=== PATIENT | male | born 1945 | race Caucasian/White ===

== ENCOUNTER 2016-07-18 14:08 | Inpatient (IN) | payer MEDICARE ==
[~2016-07-18] VITALS: Ht 193 cm; Wt 118.5 kg
[~2016-07-18 14:08] MED LIST: ASPI81TA82 PO; CLON.1 PO; LIPI10TA PO; MULTCAP14 PO
[2016-07-18 14:18] VITALS: BP 151/92; PULSE 91; RESP 16; TEMP 98.3; O2SAT 95
[2016-07-18] MEDS ORDERED: LIPI40TA PO (14:46)
[2016-07-18] MEDS ORDERED: AMLO5 PO (14:46)
[2016-07-18] MEDS ORDERED: ASPI1TAB69 PO (14:46)
[2016-07-18] MEDS ORDERED: PROPARACAINE HCL 0.5% OPHT SOLN 15 ML BTL RIGHT EYE ONE (15:00)
--- NOTE | 2016-07-18 15:37 | PD ---
HPI Chief Complaint: Eye Problems/Injury Time Seen by Provider: 14:49 Travel History International Travel<30 days: No Contact w/Intl Traveler<30days: No Traveled to known affect area: No History of Present Illness HPI The patient is a 71-year-old male who presents emergency department for right eye pain and decreased visual acuity. The patient recently traveled from [place], [place] to the local area over the last 5 days. The patient states initially he had a dull sensation of the right eye which was improved with [id number] Tylenol. However, over the last 2 days the patient has had increasing pain in the right eye, described as a throbbing and aching, behind the eye, is worse with extraocular movement. He also complains of mild decreased vision, possibly in the lower medial quadrant of the right eye. He denies any trauma to the right eye, but does note mild photophobia. The patient does wear glasses, but denies wearing contacts. The patient denies any history of uveitis, scleritis, episcleritis, optic neuritis, or glaucoma. The patient denies any history of multiple sclerosis. The patient denies any pain with the left eye. The patient denies any obvious redness to the right eye. The patient does not have a local primary physician. PFSH Past Medical History Hx Anticoagulant Therapy: Yes (asa 81 mg) Cardiovascular Problems: Yes (htn on meds) High Cholesterol: Yes Gastrointestinal Disorders: Yes (IBS) Hypertension: Yes Kidney Stones: Yes Respiratory: Yes (Hx of PE) Immunizations Current: Yes Influenza Vaccination: Yes Past Surgical History Genitourinary Surgery: Yes (URETERSCOPE TO REMOVE KIDNEY STONE 2011) Other Surgery: Yes (L. EAR SX BONY GROWTH REMOVAL, EYELID LIFT) Social History Alcohol Use: Yes (DAILY) Tobacco Use: No Substance Use: No Allergies-Medications (Allergen,Severity, Reaction): Coded Allergies: Vicodin (Verified Allergy, Severe, Dizziness, 07/18/16) TACHYCARDIA, AND SHORTNESS OF BREATH. Reported Meds & Prescriptions Reported Meds & Active Scripts Active Reported Lipitor (Atorvastatin Calcium) 40 Mg Tab 40 Mg PO HS Norvasc (Amlodipine Besylate) 5 Mg Tab 5 Mg PO DAILY Aspirin 81 Mg Tabdr 81 Mg PO DAILY Review of Systems Except as stated in HPI: all other systems reviewed are Neg Eyes: Positive: Blurred Vision, Photophobia, Pain, Visual changes, No: Foreign Body Sensation HENT: Positive: Headaches, No: Neck Pain Cardiovascular: No: Chest Pain or Discomfort Respiratory: No: Shortness of Breath Gastrointestinal: No: Nausea, Vomiting Musculoskeletal: No: Myalgias, Arthralgias Skin: No Rash Physical Exam Narrative GENERAL: Awake, alert, pleasant 71-year-old male who appears his stated age and is in no acute respiratory distress. SKIN: Warm and dry. HEAD: Atraumatic. Normocephalic. EYES: Pupils equal and round. The pupils are 4 mm bilateral and reactive. Vision in the left eye is 20/20, bilaterally is 20/20, and in the right eye is 20/25. Inversion and eversion of the lids reveals no erythema. One drop of proparacaine was applied to the right eye. Slit lamp examination was performed , minimal haze over the anterior chamber but no obvious cell flare. There was no pain in the right eye when the left eye had light applied. Extraocular muscles were intact, did increase the patient's discomfort per his report. He was able to see fingers at a distance of 2 feet without difficulty. There was no visible corneal abrasion, corneal ulcer, or dendritic lesions. Ryan-Pen was used to measure pressures in the right eye which measured 15 and 17. ENT: No nasal bleeding or discharge. Mucous membranes pink and moist. NECK: Trachea midline. No JVD. MUSCULOSKELETAL: No obvious deformities. No clubbing. No cyanosis. No edema. NEUROLOGICAL: Awake and alert. No obvious cranial nerve deficits. Motor grossly within normal limits. Normal speech. PSYCHIATRIC: Appropriate mood and affect; insight and judgment normal. Data Data Last Documented VS Vital Signs Date Time Temp Pulse Resp B/P Pulse Ox O2 Delivery O2 Flow Rate FiO2 07/18/16 14:18 98.3 91 16 151/92 95 Orders Proparacaine 0.5% Opth Soln (Alcaine 0.5 (07/18/16 15:00) Mri Brain W&W/O Contrast (07/18/16 ) Mri Orbits W&W/O Contrast (07/18/16 ) Basic Metabolic Panel (Bmp) (07/18/16 15:22) Westergren Sedimentation Rate (07/18/16 15:25) MDM Medical Decision Making Medical Screen Exam Complete: Yes Emergency Medical Condition: Yes Medical Record Reviewed: Yes Differential Diagnosis Differential diagnosis includes optic neuritis, uveitis, scleritis, episcleritis , endophthalamitis, corneal abrasion, corneal ulcer, iritis, temporal arteritis. Narrative Course The patient's slit lamp examination reveals a thin haze over the right anterior chamber, but no obvious cell flare. The patient has pain with extraocular movements, mild photophobia, and throbbing headache. The patient's pressures were normal, and the pupil is not cloudy or fixed in the mid range, I doubt glaucoma. The patient's symptoms may be secondary to uveitis versus optic neuritis. The patient's vision on the left was 20/20 and on the right was 20/ 25. BMP and sedimentation rate were sent to lab. MRI of the orbit and brain were ordered to evaluate for possible optic neuritis. The patient was signed out to the oncoming physician at 4 PM with MRI pending. If MRI is negative, I believe the patient can be placed on steroid drops and referred to ophthalmology to be evaluated on Wednesday. Condition: Stable Kenneth Major MD Jul 18, 2016 15:37
[2016-07-18 16:01] LABS: POTASSIUM 4.3 MEQ/L (3.5-5.1)
[2016-07-18 16:04] LABS: BICARBONATE 27.4 MEQ/L (21.0-32.0)
[2016-07-18] MEDS ORDERED: GADODIAMIDE PF 287 MG/ML 20 ML VIAL (for RAD MRI) IV ONE (16:58)
--- NOTE | 2016-07-18 17:42 | RADHPO ---
EXAM DATE/TIME: 07/18/2016 17:01 [facility] COMPARISON: No previous studies available for comparison. INDICATIONS : Optic neuritis. Right eye pain. CONTRAST: 20 cc Omniscan (gadodiamide) IV MEDICAL HISTORY : Hypertension. SURGICAL HISTORY : Eyelid lift, Inner ear calcification removal. ENCOUNTER: Initial ACUITY: 4-6 days PAIN SCORE: 4/10 LOCATION: Right Eye TECHNIQUE: Multiplanar, multisequence MRI examination was performed. FINDINGS: There is mild nerve and nerve sheath enhancement of the intraconal portions of the right optic nerve. Intracranial portions, including the chiasm, within normal limits. Optic tracts are within normal li mits. No mass demonstrated. Globes are within normal limits. No fluid collections are seen. Numerous subcentimeter foci of flair signal abnormality seen in the periventricular white matter of b oth cerebral hemispheres. No enhancing brain lesion. There is no restricted diffusion. No intracrania l hemorrhage, mass, mass effect or midline shift. CONCLUSION: Nonspecific, mild appearing optic neuritis on the right. No mass. Mild, chronic cerebral white matter changes, also nonspecific. No acute intracranial abnormality demonstrated. Vargas Weinstein MD on July 18, 2016 at 17:35 Board Certified Radiologist. This report was verified electronically.
[2016-07-18 18:15] VITALS: BP 111/62; PULSE 81; RESP 18; O2SAT 100
[2016-07-18] MEDS ORDERED: methylPREDNISolone SO SUCC INJ 1,000 MG in DEXTROSE 5% IN WATER 100ML INJ 100 ML IV ONE ×2 (18:15)
--- NOTE | 2016-07-18 18:15 | PD ---
Data Data Last Documented VS Vital Signs Date Time Temp Pulse Resp B/P Pulse Ox O2 Delivery O2 Flow Rate FiO2 07/18/16 14:18 98.3 91 16 151/92 95 Orders Proparacaine 0.5% Opth Soln (Alcaine 0.5 (07/18/16 15:00) Mri Orbits W&W/O Contrast (07/18/16 ) Basic Metabolic Panel (Bmp) (07/18/16 15:22) Westergren Sedimentation Rate (07/18/16 15:25) Gadodiamide Pf Inj (Omniscan Pf Inj) (07/18/16 16:58) Methylprednisolone So Succ Inj (Solumedr (07/18/16 18:15) Labs Laboratory Tests Test 07/18/16 15:44 Erythrocyte Sedimentation Rate 6 mm/hr Sodium Level 145 MEQ/L Potassium Level 4.3 MEQ/L Chloride Level 109 MEQ/L Carbon Dioxide Level 27.4 MEQ/L Anion Gap 9 MEQ/L Blood Urea Nitrogen 12 MG/DL Creatinine 1.00 MG/DL Estimat Glomerular Filtration 74 ML/MIN Rate Random Glucose 163 MG/DL Calcium Level 8.8 MG/DL MDM Supervised Visit with AYO: No Narrative Course The patient was evaluated by the previous provider and signed out to me at the beginning of my shift pending labs, MRI brain and orbits, and disposition. See his note for further details. Briefly this is a 71-year-old male who is here for evaluation of right retro- orbital pain and blurred vision. Pain started about 5 days ago her vision started yesterday. Previous provider performed a thorough eye exam and ruled out glaucoma with normal intraocular pressures bilaterally, no corneal abrasion , mild haziness and anterior chamber without cell or flare, normal visual bess. ESR is 6 essentially ruling out temporal arteritis. MRI brain and orbits show no mass, however there is mild optic neuritis on the right. Case was discussed with on-call neurologist Dr. John who recommends admission for administration of Solu-Medrol 1 g IV daily 3 days. He will see the patient in consultation. Patient was made aware of all findings and plan for admission. Diagnosis Primary Impression: Optic neuritis, right Admitting Information Admitting Physician Requests: Admit Condition: Stable Connor Barrios MD Jul 18, 2016 18:15
[2016-07-18 18:35] VITALS: BP 190/101; PULSE 82; RESP 18; O2SAT 95
[2016-07-18] MEDS ORDERED: ONDANSETRON HCL 4 MG/2 ML VIAL IVP PRN (18:45)
[2016-07-18] MEDS ORDERED: ACETAMINOPHEN 325 MG TAB PO PRN (18:45)
[2016-07-18] MEDS ORDERED: NALOXONE HCL 0.4 MG/ML AMP IV PRN (18:45)
[2016-07-18] MEDS ORDERED: MAGNESIUM HYDROXIDE SUSP 30 ML CUP PO PRN (18:45)
[2016-07-18] MEDS ORDERED: SODIUM CHLORIDE 0.9% FLUSH 5 ML FLUSH FLUSH PRN (18:45)
--- NOTE | 2016-07-18 19:03 | HHI.HP ---
[facility]Staff Admission Diagnosis optic neuritis Diagnoses: (1) Optic neuritis, right (2) Hyperlipidemia (3) Hypertension Chief Complaint: Right eye pain, vision loss Travel History International Travel<30 Days: No Contact w/Intl Traveler <30 Da: No Traveled to Known Affected Are: No History of Present Illness The patient is a 71-year-old male who presented to emergency department with a four-day history of right eye discomfort and decreased visual acuity. He states that he drove from [place] starting on Wednesday. By the end of the day Wednesday, he was having some pain in his right eye as well as headache. He took some Tylenol, which helped the pain. He has had increasing pain over the last 2-3 days and yesterday developed decreased vision in the right eye. The vision changes have remained the same today, they have not worsened or improved. No headache currently. No chest pain or dyspnea. Patient denies any other history of neurologic diagnoses, but did have dizziness for 1-2 days about 2 weeks ago. Review of Systems Constitutional: DENIES: Fever, Chills, Night Sweats Eyes: COMPLAINS OF: Blurred vision, Eye pain, Vision loss, Photosensitivity Ears, nose, mouth, throat: DENIES: Hearing loss Respiratory: DENIES: Cough, Wheezing, Sputum production, Shortness of breath Cardiovascular: DENIES: Chest pain, Palpitations, Dyspnea on Exertion, Lower Extremity Edema Gastrointestinal: DENIES: Abdominal pain, Constipation, Diarrhea, Nausea, Vomiting Genitourinary: DENIES: Urinary frequency, Urinary incontinence, Urgency, Hematuria, Dysuria, Nocturia Musculoskeletal: DENIES: Joint pain, Muscle aches Integumentary: DENIES: Pruritus, Rash Hematologic/lymphatic: DENIES: Bruising Neurologic: DENIES: Headache Past Family Social History Past Medical History Hypertension Hyperlipidemia Irritable bowel syndrome History of kidney stone History of PE following a long drive Past Surgical History Ureteroscoped to remove kidney stone 2011 Left ear surgery Left knee surgery Left foot surgery Reported Medications Lipitor (Atorvastatin Calcium) 40 Mg Tab 40 Mg PO HS Norvasc (Amlodipine Besylate) 5 Mg Tab 5 Mg PO DAILY Aspirin 81 Mg Tabdr 81 Mg PO DAILY Allergies: Coded Allergies: Vicodin (Verified Allergy, Severe, Dizziness, 07/18/16) TACHYCARDIA, AND SHORTNESS OF BREATH. Family History Heart disease Social History Reports daily alcohol use, 1-2 drinks per day. Denies tobacco or illicit drug use. Physical Exam Vital Signs Vital Signs Date Time Temp Pulse Resp B/P Pulse Ox O2 Delivery O2 Flow Rate FiO2 07/18/16 18:35 82 18 190/101 95 Room Air 07/18/16 14:18 98.3 91 16 151/92 95 Physical Exam GENERAL: Well-nourished, well-developed male in no acute distress. HEENT: Normocephalic, atraumatic. Pupils equal, round and reactive. Extraocular movements intact. No scleral icterus. Oropharynx is clear. Mucous membranes are moist. CARDIOVASCULAR: Regular rate and rhythm without murmurs, gallops, or rubs. RESPIRATORY: Clear to auscultation. No wheezes, rales, or rhonchi. Breathing is non-labored. GASTROINTESTINAL: Abdomen soft, non-tender, nondistended. EXTREMITIES: No lower extremity edema. No calf tenderness. PSYCH: Alert and oriented x 3. Laboratory Laboratory Tests Test 07/18/16 15:44 Erythrocyte Sedimentation Rate 6 Sodium Level 145 Potassium Level 4.3 Chloride Level 109 Carbon Dioxide Level 27.4 Anion Gap 9 Blood Urea Nitrogen 12 Creatinine 1.00 Estimat Glomerular Filtration 74 Rate Random Glucose 163 Calcium Level 8.8 Result Diagram: 07/18/16 1544 Imaging Last Impressions Orbit MRI 07/18/16 0000 Signed Impressions: Service Date/Time: Monday, July 18, 2016 17:01 - CONCLUSION: Nonspecific, mild appearing optic neuritis on the right. No mass. Mild, chronic cerebral white matter changes, also nonspecific. No acute intracranial abnormality demonstrated. Vargas Weinstein MD Assessment and Plan Assessment and Plan 1. Optic neuritis: Consult neurology. The ER physician spoke with the on-call neurologist who recommended high-dose Solu-Medrol daily for 3 days. 2. Hypertension: Continue Norvasc. Vasotec as needed. 3. Hyperlipidemia: Continue statin. 4. DVT prophylaxis: KENN Schaeffer. Danial Barreto MD Jul 18, 2016 19:03
[2016-07-18] MEDS ORDERED: ENALAPRILAT 1.25 MG/ML VIAL IV PUSH PRN (19:15)
[2016-07-18 19:16] VITALS: BP 191/83; PULSE 89; RESP 18; O2SAT 95
[2016-07-18 20:12] VITALS: BP 168/81; PULSE 85; RESP 17; O2SAT 95
[2016-07-18] MEDS: ATORVASTATIN 40 MG TAB PO SCH (20:31)
[2016-07-18 23:10] VITALS: BP 158/68; PULSE 78; RESP 18; O2SAT 94
[2016-07-19] VITALS (10 sets, daily range): BP systolic 124–174; BP diastolic 58–93; PULSE 82–107; RESP 17–18; TEMP 95.9–97.6; O2SAT 92–97
[2016-07-19] MEDS: SODIUM CHLORIDE 0.9% FLUSH 5 ML FLUSH FLUSH SCH ×3 (06:07→20:46)
[2016-07-19 07:03] LABS: AUTOMATED NEUTROPHIL # 11.9 TH/MM3 (1.8-7.7); BASOPHIL # 0.1 TH/MM3 (0-0.2); BASOPHIL % 0.7 % (0.0-2.0); HEMATOCRIT 48.2 % (39.0-51.0); LYMPHOCYTE # 0.6 TH/MM3 (1.0-4.8); MEAN CELL VOLUME 88.9 FL (80.0-100.0); MEAN CORPUSCULAR HEMOGLOBIN 29.6 PG (27.0-34.0); MEAN CORPUSCULAR HGB CONC 33.3 % (32.0-36.0); MONO % 0.1 % (0.0-8.0); NEUT % 94.2 % (16.0-70.0); PLATELET COUNT 184 TH/MM3 (150-450); RED BLOOD COUNT 5.42 MIL/MM3 (4.50-5.90); RED CELL DISTRIBUTION WIDTH 12.5 % (11.6-17.2); WHITE BLOOD COUNT 12.6 TH/MM3 (4.0-11.0)
[2016-07-19 07:06] LABS: HEMO FLAGS DIFF FINAL
[2016-07-19 07:24] LABS: BICARBONATE 23.7 MEQ/L (21.0-32.0)
[2016-07-19] MEDS: ASPIRIN EC 81 MG TABEC PO SCH (08:54)
[2016-07-19] MEDS: amLODIPine BESYLATE 5 MG TAB PO SCH (08:54)
--- NOTE | 2016-07-19 09:35 | HHI.PR ---
Subjective Remarks Follow-up optic neuritis. Patient states that he feels better today. Pain in the right eye has essentially resolved. His vision is more clear this morning. No chest pain or dyspnea. Has had fluctuating heart rate overnight after receiving the steroids. Objective Vitals Vital Signs Date Time Temp Pulse Resp B/P Pulse Ox O2 Delivery O2 Flow Rate FiO2 07/19/16 06:35 90 18 153/80 97 Room Air 07/19/16 05:40 94 18 172/91 Room Air 07/19/16 03:00 89 17 164/86 95 Room Air 07/18/16 23:10 78 18 158/68 94 Room Air 07/18/16 21:33 18 07/18/16 20:12 85 17 168/81 95 Room Air 07/18/16 19:16 89 18 191/83 95 Room Air 07/18/16 18:35 82 18 190/101 95 Room Air 07/18/16 14:18 98.3 91 16 151/92 95 Result Diagram: 07/19/16 0620 07/19/16 0620 Imaging Last Impressions Orbit MRI 07/18/16 0000 Signed Impressions: Service Date/Time: Monday, July 18, 2016 17:01 - CONCLUSION: Nonspecific, mild appearing optic neuritis on the right. No mass. Mild, chronic cerebral white matter changes, also nonspecific. No acute intracranial abnormality demonstrated. Vargas Weinstein MD Objective Remarks General: No acute distress. Heart: Regular rate and rhythm. No murmur. Lungs: Clear to auscultation bilaterally. No wheezes, rales, or rhonchi. Breathing is nonlabored. Abdomen: Soft, nontender, nondistended. Extremities: No lower extremity edema. Psych: Alert and oriented. Urinary Catheter: No Vascular Central Line Catheter: No A/P Problem List: (1) Optic neuritis, right ICD Code: H46.9 Status: Acute (2) Hyperlipidemia ICD Code: E78.5 Status: Chronic (3) Hypertension ICD Code: I10 Status: Chronic Assessment and Plan 1. Optic neuritis: Vision and eye pain are improving. Consult neurology. The ER physician spoke with the on-call neurologist who recommended high-dose Solu- Medrol daily for 3 days. 2. Hypertension: Continue Norvasc. Vasotec as needed. 3. Hyperlipidemia: Continue statin. 4. DVT prophylaxis: SCDs, KENN hose. Discharge Planning When cleared by neurology. Danial Barreto MD Jul 19, 2016 09:35
[2016-07-19] MEDS ORDERED: ACETAMINOPHEN 325 MG TAB PO ONE (12:00)
[2016-07-19] MEDS ORDERED: ACETAMINOPHEN 325 MG TAB PO PRN (12:30)
--- NOTE | 2016-07-19 13:12 | EKG ---
Date Performed: 07/19/2016 Time Performed: 05:20:10 PTAGE: 71 years EKG: Sinus arrhythmia Normal ECG NO PREVIOUS TRACING DOCTOR: Ida Rivers Interpretating Date/Time 07/19/2016 13:09:34
[2016-07-19] MEDS ORDERED: methylPREDNISolone SO SUCC INJ 1,000 MG in DEXTROSE 5% IN WATER 100ML INJ 100 ML IV ONE ×2 (18:00)
--- NOTE | 2016-07-19 20:48 | MB ---
cc: ANGELY YODER MD DATE OF CONSULTATION 07/19/2016 REASON FOR CONSULTATION Painful loss of vision of the right eye. HISTORY OF PRESENT ILLNESS A 71-year-old male presents to the emergency room with a one week history of right eye pain and discomfort with diminished vision. He states he was driving from [place] on Wednesday and he was having pain in his right eye, especially on movement and mild headache. Then he had noticed two days later that he developed a diminished vision in the right eye and vision became "pixilated" but he denies any change in the color vision. No double vision. He has no speech disturbances. No weakness. Denies any prior similar episodes. REVIEW OF SYSTEMS A 12-point review of systems is negative except for what is stated in the HPI. PAST MEDICAL HISTORY 1. Hypertension. 2. Hyperlipidemia. 3. Irritable bowel syndrome. 4. History of kidney stones. 5. History of PE following a long drive. 6. He was thoroughly investigated for suspicion Lyme disease but it was found to be normal. PAST SURGICAL HISTORY 1. Ureteroscopy for kidney stones 2011. 2. Left ear surgery. 3. Left knee surgery. 4. Left foot surgery. MEDICATIONS 1. Lipitor. 2. Norvasc. 3. Aspirin 81. left knee surgery next left foot surgery. MEDICATIONS 1. Lipitor. 2. Norvasc. 3. Aspirin 81. ALLERGIES VICODIN. FAMILY HISTORY Significant for heart disease. SOCIAL HISTORY Daily alcohol use one to two drinks per day. Denies tobacco or recreational drug abuse. PHYSICAL EXAMINATION GENERAL: Well-nourished, good historian, not in acute distress. HEENT: Atraumatic, normocephalic. Intact hearing. Complains of blurry vision on the right eye that has been improving since yesterday after he received first dose of Solu-Medrol. CARDIOVASCULAR: Regular rate and rhythm without murmurs. LUNGS: Clear to auscultation. No wheezes. EXTREMITIES: No lower extremity edema. No cyanosis. Moves all extremities equally. PSYCHIATRIC: Good mood and behavior. Normal judgment. LABORATORY DATA Sedimentation rate 6.0. Sodium level 145, potassium level 4.3, chloride 109, anion gap 9, BUN 12, creatinine 1.0, random glucose 163, calcium 8.2. IMAGING Diagnostic imaging: - MRI orbit with and without contrast revealed nonspecific mild appearing optic neuritis on the right side. No masses. Mild chronic cerebral white matter changes, also nonspecific. No acute intracranial abnormality detected. No restricted diffusion. No hemorrhage. No midline shift. DIAGNOSTIC IMPRESSION - Right nonspecific optic neuritis. Possible etiologies include demyelination, vasculitis / vasculopathy. Other less likely pathologies include giant cell arteritis, vitamin B12 / vitamin deficiency, neuro sarcoid, Lyme disease. PLAN 1. Neuro checks q.4h. 2. Methylprednisolone that I recommended to be started after discussing with the emergency room physician to be started from yesterday, patient received one dose to continue for three doses and three consecutive days. 3. Continue blood pressure medication. 4. Continue statin. 5. Telemetry. 6. Cardiac echo. 7. Carotid ultrasound. 8. Cervical spine MRI. 9. Lumbar puncture, chemistry, cytology, ALANNA, lyme Ab, IgG index, NMO, oligoclonal bands, protein, . 10. DVT prophylaxis. Thank you for the opportunity to participate in care of your patient. MD LEROY Meza/MAGED /4:40 PM /8:30 PM SHAHRIAR
[2016-07-19] MEDS: ATORVASTATIN 40 MG TAB PO SCH (22:17)
[2016-07-20] VITALS: BP 124/65; PULSE 72; RESP 18; TEMP 95.7; O2SAT 92
[2016-07-20 04:00] VITALS: BP 140/69; PULSE 71; RESP 18; TEMP 95.5; O2SAT 92
[2016-07-20] MEDS: ASPIRIN EC 81 MG TABEC PO SCH (09:00)
[2016-07-20] MEDS: amLODIPine BESYLATE 5 MG TAB PO SCH (09:47)
[2016-07-20] MEDS: SODIUM CHLORIDE 0.9% FLUSH 5 ML FLUSH FLUSH SCH ×2 (09:47→21:48)
[2016-07-20] MEDS ORDERED: PNEUMOCOCCAL POLYVALENT INJ 25 MCG/0.5 ML SYR IM ONE (10:00)
[2016-07-20 11:13] VITALS: BP 150/74; PULSE 95; RESP 18; TEMP 96; O2SAT 93
[2016-07-20] MEDS ORDERED: GADODIAMIDE PF 287 MG/ML 20 ML VIAL (for RAD MRI) IV ONE (11:14)
[2016-07-20 12:00] VITALS: BP 142/72; PULSE 67; RESP 18; TEMP 96; O2SAT 93
--- NOTE | 2016-07-20 12:04 | RADRPT ---
EXAM DATE/TIME: 07/20/2016 10:50 [facility] COMPARISON: No previous studies available for comparison. INDICATIONS : Diminished vision in right eye. CONTRAST: 20 cc Omniscan (gadodiamide) IV MEDICAL HISTORY : Hypertension. SURGICAL HISTORY : knee, eardrum, eyelid ENCOUNTER: Subsequent ACUITY: 3 day PAIN SCORE: 0/10 LOCATION: neck TECHNIQUE: Multiplanar, multisequence MRI examination of the cervical spine was performed. FINDINGS: Normal alignment. Diffuse disc desiccation and prominent anterior osteophyte formation at C5 and C6. Spinal cord is normal. C2-C3: The thecal sac has a normal configuration. There is no evidence of disc herniation or spinal canal stenosis. The neural foramina are patent bilaterally. C3-C4: Posterior disc osteophyte complex eccentric to the right with moderate right foraminal stenosis. C4-C5: The thecal sac has a normal configuration. There is no evidence of disc herniation or spinal canal s tenosis. The neural foramina are patent bilaterally. C5-C6: Small broad-based central disc protrusion abutting the cord. No canal or foraminal narrowing. C6-C7: Diffuse disc osteophyte complex greater centrally abuts the cord with facet and uncovertebral hypertr ophy and mild bilateral foraminal narrowing suspected. C7-T1: The thecal sac has a normal configuration. There is no evidence of disc herniation or spinal canal s tenosis. The neural foramina are patent bilaterally. CONCLUSION: Degenerative changes are noted as described above. Brandon Grissom MD on July 20, 2016 at 12:01 Board Certified Radiologist. This report was verified electronically.
--- NOTE | 2016-07-20 12:59 | HHI.PR ---
Subjective Remarks Patient seen and evaluated today in follow-up for optic neuritis. Reports improved vision with steroids. No new complaints. Headache is better. Objective Vitals Vital Signs Date Time Temp Pulse Resp B/P Pulse Ox O2 Delivery O2 Flow Rate FiO2 07/20/16 11:13 96.0 95 18 150/74 93 07/20/16 04:00 95.5 71 18 140/69 92 07/20/16 00:00 95.7 72 18 124/65 92 07/19/16 20:00 95.9 82 18 152/76 94 07/19/16 16:00 96.3 102 18 124/58 92 I/O 07/19/16 07/19/16 07/19/16 07/20/16 07/20/16 07/20/16 07:00 15:00 23:00 07:00 15:00 23:00 Intake Total 600 ml 240 ml Balance 600 ml 240 ml Intake Oral 600 ml 240 ml # Voids 2 2 # Bowel Movements 0 0 Result Diagram: 07/19/16 0620 07/19/16 0620 Imaging Last Impressions Orbit MRI 07/18/16 0000 Signed Impressions: Service Date/Time: Monday, July 18, 2016 17:01 - CONCLUSION: Nonspecific, mild appearing optic neuritis on the right. No mass. Mild, chronic cerebral white matter changes, also nonspecific. No acute intracranial abnormality demonstrated. Vargas Weinstein MD Objective Remarks GENERAL: This is a well-nourished, well-developed patient, in no apparent distress. CARDIOVASCULAR: Regular rate and rhythm without murmurs, gallops, or rubs. RESPIRATORY: Clear to auscultation. Breath sounds equal bilaterally. No wheezes , rales, or rhonchi. GASTROINTESTINAL: Abdomen soft, non-tender, nondistended. Normal active bowel sounds MUSCULOSKELETAL: Extremities without clubbing, cyanosis, or edema. NEURO: Alert & Oriented x4 to person, place, time, situation. Moves all ext x4 A/P Problem List: (1) Optic neuritis, right ICD Code: H46.9 Status: Acute Plan: Continue steroids, workup in progress Echo, carotid ultrasound pending Continue telemetry (2) Hypertension ICD Code: I10 Status: Chronic Plan: Controlled on home medications Audra Gilbert MD Jul 20, 2016 12:59
--- NOTE | 2016-07-20 13:48 | RADRPT ---
EXAM DATE/TIME: 07/20/2016 09:11 [facility] COMPARISON: No previous studies available for comparison. INDICATIONS : Optic neuritis. MEDICAL HISTORY : Hypercholesterolemia. Hypertension. Irritable bowel syndrome. Vision problem. Tinitis left ear. Antic oagulant therapy, Aspirin. Pulmonary embolism. Kidney stones. SURGICAL HISTORY : Ureteroscope. Left knee and foot surgery. Left ear surgery. Eyelid lift. ENCOUNTER: Initial ACUITY: 2 days PAIN SCORE: 0/10 LOCATION: Bilateral neck PEAK SYSTOLIC VELOCITIES (cm/sec): ICA/CCA RATIO: Right: 0.7 Left: 1.1 ICA: Right: 91 Left: 126 CCA: Right: 132 Left: 126 ECA: Right: 151 Left: 141 VERTEBRAL: Right: 47 antegrade Left: 45 antegrade Elevated flow velocities and ICA/CCA ratios have been found to correlate with increased degrees of vessel stenosis, calculated as percentage of diameter relative to a normal segment of distal ICA/CCA FINDINGS: RIGHT CAROTID: No significant stenosis is visualized. The waveforms are within normal limits. LEFT CAROTID: No significant stenosis is visualized. The waveforms are within normal limits. VERTEBRAL ARTERIES: Antegrade flow is seen in both vertebral arteries. MISCELLANEOUS: None. CONCLUSION: 1. No evidence for hemodynamically significant stenosis of either carotid artery. Brandon Grissom MD on July 20, 2016 at 13:46 Board Certified Radiologist. This report was verified electronically.
[2016-07-20 16:00] VITALS: BP 161/68; PULSE 68; RESP 18; TEMP 96.8; O2SAT 94
[2016-07-20 20:00] VITALS: BP 157/76; PULSE 58; RESP 16; TEMP 96.3; O2SAT 94
[2016-07-20] MEDS ORDERED: methylPREDNISolone SO SUCC INJ 1,000 MG in DEXTROSE 5% IN WATER 100ML INJ 100 ML IV ONE ×2 (20:00)
--- NOTE | 2016-07-20 21:24 | HHI.PR ---
Review/Management Diagnosis IMAGING Diagnostic imaging: - MRI orbit with and without contrast revealed nonspecific mild appearing optic neuritis on the right side. No masses. Mild chronic cerebral white matter changes, also nonspecific. No acute intracranial abnormality detected. No restricted diffusion. No hemorrhage. No midline shift. DIAGNOSTIC IMPRESSION - Right optic neuritis. Possible etiologies include demyelination, vasculitis / vasculopathy. Other less likely pathologies include giant cell arteritis, vitamin B12 / vitamin deficiency, neuro sarcoid, Lyme disease. PLAN 1. Neuro checks q.4h. 2. Methylprednisolone third and last dose today 3. Continue blood pressure medication. 4. Continue statin. 5. Telemetry. 6. Cardiac echo. 7. Carotid ultrasound unremarkable 8. Cervical spine MRI with no evidence of enhancing lesions 9. Lumbar puncture, chemistry, cytology, ALANNA, lyme Ab, IgG index, NMO, oligoclonal bands, protein, . 10. DVT prophylaxis. Diagnosis/Plan: Subjective Subjective Comments No acute events reported Complains of transient dizziness upon awakening from sleep, last a few seconds with no double vision or slurred speech. No painful eye movements CUS with no hemodynamically significant stenosis C spine MRI w & w/o contrast with no enhancing lesions Active Medications Current Medications Medications (Trade) Dose Ordered Sig/Gary Route Start Time Stop Time Status Last Admin (NS Flush) 2 ml UNSCH PRN FLUSH 07/18/16 18:45 (NS Flush) 2 ml BID FLUSH 07/18/16 21:00 07/20/16 09:47 (Tylenol) 650 mg Q4H PRN PO 07/18/16 18:45 07/18/16 20:33 (Zofran Inj) 4 mg Q6H PRN IVP 07/18/16 18:45 (Milk Of Magnesia Liq) 30 ml Q12H PRN PO 07/18/16 18:45 (Narcan Inj) 0.4 mg UNSCH PRN IV 07/18/16 18:45 (Vasotec Inj) 1.25 mg Q6H PRN IV PUSH 07/18/16 19:15 07/19/16 06:07 (Norvasc) 5 mg DAILY PO 07/19/16 09:00 07/20/16 09:47 (Ecotrin Ec) 81 mg DAILY PO 07/19/16 09:00 07/19/16 08:54 (Lipitor) 40 mg HS PO 07/18/16 21:00 07/19/16 22:17 (Tylenol) 650 mg Q6H PRN PO 07/19/16 12:30 Allergies Allergies Coded Allergies Vicodin (Verified Allergy, Severe, Dizziness, 07/18/16) Exam I&O / VS 07/19/16 07/19/16 07/20/16 15:00 23:00 07:00 Intake Total 600 ml 240 ml Balance 600 ml 240 ml Intake Oral 600 ml 240 ml # Voids 2 2 # Bowel Movements 0 0 Vital Signs Date Time Temp Pulse Resp B/P Pulse Ox O2 Delivery O2 Flow Rate FiO2 07/20/16 21:02 Room Air 07/20/16 16:00 96.8 68 18 161/68 94 07/20/16 12:00 96.0 67 18 142/72 93 07/20/16 11:13 96.0 95 18 150/74 93 07/20/16 04:00 95.5 71 18 140/69 92 07/20/16 00:00 95.7 72 18 124/65 92 Exam Comments GENERAL: Well-nourished, good historian, not in acute distress. HEENT: Atraumatic, normocephalic. Intact hearing. Complains of blurry vision on the right eye that has been improving since yesterday after he received first dose of Solu-Medrol. CARDIOVASCULAR: Regular rate and rhythm without murmurs. LUNGS: Clear to auscultation. No wheezes. EXTREMITIES: No lower extremity edema. No cyanosis. Moves all extremities equally. NEUROLOGIC: Awake, alert, oriented to time, person and place, intact memory, speech and speech content, right eye RAPD, no nystagmus, no diplopia, the rest of the cranial nerves are grossly intact.motor system 5/5 b/l UE&LE , normal tone , no abnormal movements.Cerebellar and sensory systems functions are normal. Reflexes 2+ throughout, plantars are b/l downgoing. Intact stance and gait, negative Rhomberg's sign, no ataxia. PSYCHIATRIC: Good mood and behavior. Normal judgment. Objective Radiology Results Last 72 hours Impressions Orbit MRI 07/18/16 0000 Signed Impressions: Service Date/Time: Monday, July 18, 2016 17:01 - CONCLUSION: Nonspecific, mild appearing optic neuritis on the right. No mass. Mild, chronic cerebral white matter changes, also nonspecific. No acute intracranial abnormality demonstrated. Vargas Weinstein MD Ossi,Ryne Godwin MD Jul 20, 2016 21:24
[2016-07-20] MEDS: ATORVASTATIN 40 MG TAB PO SCH (21:47)
[2016-07-21 01:12] VITALS: BP 164/89; PULSE 66; RESP 16; TEMP 96; O2SAT 92
[2016-07-21 08:00] VITALS: BP 131/64; PULSE 67; RESP 18; TEMP 95.9; O2SAT 92
[2016-07-21] MEDS: ASPIRIN EC 81 MG TABEC PO SCH (09:00)
[2016-07-21] MEDS: SODIUM CHLORIDE 0.9% FLUSH 5 ML FLUSH FLUSH SCH ×2 (09:18→21:45)
[2016-07-21] MEDS: amLODIPine BESYLATE 5 MG TAB PO SCH (09:18)
[2016-07-21 11:16] LABS: PROTHROMBIN TIME - PATIENT 11.2 SEC (9.8-11.6)
[2016-07-21 12:00] VITALS: BP 150/84; PULSE 70; RESP 17; TEMP 95.5; O2SAT 93
--- NOTE | 2016-07-21 13:43 | HHI.PR ---
Subjective Remarks Follow-up for optic neuritis. The patient states that he was having visual floaters yesterday, and that has improved overnight. He states the eye pain he was having when he came in was resolved after starting on the steroids. He does feel a little lightheaded on steroids. Has been able to ambulate with no problems. He denies any cough, chest pain, shortness of breath. He states in the ED he had some heart palpitations, none since. Had a normal BM. Going for LP. Objective Vitals Vital Signs Date Time Temp Pulse Resp B/P Pulse Ox O2 Delivery O2 Flow Rate FiO2 07/21/16 08:00 95.9 67 18 131/64 92 07/21/16 01:12 96.0 66 16 164/89 92 07/20/16 21:02 Room Air 07/20/16 20:00 96.3 58 16 157/76 94 07/20/16 16:00 96.8 68 18 161/68 94 I/O 07/20/16 07/20/16 07/20/16 07/21/16 07/21/16 07/21/16 06:59 14:59 22:59 06:59 14:59 22:59 Intake Total 240 ml 480 ml 480 ml 240 ml Balance 240 ml 480 ml 480 ml 240 ml Intake Oral 240 ml 480 ml 480 ml 240 ml # Voids 2 3 2 1 # Bowel Movements 0 0 1 0 Result Diagram: 07/19/16 0620 07/19/16 0620 Imaging Last Impressions Cervical Spine MRI 07/20/16 0000 Signed Impressions: Service Date/Time: Wednesday, July 20, 2016 10:50 - CONCLUSION: Degenerative changes are noted as described above. Brandon Grissom MD Carotid Artery Ultrasound 07/20/16 0000 Signed Impressions: Service Date/Time: Wednesday, July 20, 2016 09:11 - CONCLUSION: 1. No evidence for hemodynamically significant stenosis of either carotid artery. Brandon Grissom MD Orbit MRI 07/18/16 0000 Signed Impressions: Service Date/Time: Monday, July 18, 2016 17:01 - CONCLUSION: Nonspecific, mild appearing optic neuritis on the right. No mass. Mild, chronic cerebral white matter changes, also nonspecific. No acute intracranial abnormality demonstrated. Vargas Weinstein MD Objective Remarks GENERAL: Well-developed well-nourished. In no acute distress. Ambulating in the room. SKIN: Warm and dry. No lesions noted. HEENT: Normocephalic. Pupils equal and round. Mucous membranes pink and moist. CARDIOVASCULAR: Regular rate and rhythm. No murmur appreciated. RESPIRATORY: No accessory muscle use. Clear to auscultation. Breath sounds equal bilaterally. GASTROINTESTINAL: Abdomen soft, non-tender, nondistended. Bowel sounds x4. MUSCULOSKELETAL: No obvious deformities. No clubbing or cyanosis. No edema. NEUROLOGICAL: Awake and alert. No focal neurological deficits. Moves upper and lower extremities spontaneously. Normal speech. PSYCHIATRIC: Appropriate mood and affect; insight and judgment normal. A/P Problem List: (1) Optic neuritis, right ICD Code: H46.9 Status: Acute (2) Hypertension ICD Code: I10 Status: Chronic Assessment and Plan 71-year-old male with past medical history of HTN, HLD, IBS, who presented with a four-day history of right eye discomfort and decreased visual acuity Optic neuritis: Seen on orbital MRI. Vision and eye pain continued to improve. Consulted neurology, appreciate input. S/P steroids. Awaiting echocardiogram. LP today, follow-up results. Hypertension: Chronic, stable. Continue Norvasc. Vasotec as needed. Hyperlipidemia: Chronic, stable. Continue statin. DVT prophylaxis: SCDs, KENN casillas. Written by Aakash Silverio, acting as scribe for Dr. Nieto on 07/21/16 at 13:42. Discharge Planning Disposition pending clinical course. Attending Statement The documentation accurately reflects the work performed [id number] by wa, Dr. Nieto on 07/21/16 at 13:42. Aaksah Silverio Jul 21, 2016 13:43 Chevy Nieto MD Jul 22, 2016 02:36
--- NOTE | 2016-07-21 14:14 | PD.RAD ---
Post Procedure Progress Note Pre Procedure Diagnosis: (1) Optic neuritis, right Post Procedure Diagnosis: (1) Optic neuritis, right Procedure Date: Jul 21, 2016 Supervising Radiologist: Karl Meneses Anesthesia: Local Plan of Activity Patient to Unit: Nursing Unit Patient Condition: Good Additional Comments: LP completed without difficulty. CSF was clear. Opening pressure 17 Samples sent to path. See PACS Report for procedural detail/treatment Karl Meneses MD Jul 21, 2016 14:14
--- NOTE | 2016-07-21 14:38 | RADRPT ---
EXAM DATE/TIME: 07/21/2016 13:30 [facility] COMPARISON: No previous studies available for comparison. INDICATIONS : Patient with right optic neuritis in need of lumbar puncture. MEDICAL HISTORY : HTN, HLD, IBS, Kidney stones, PE SURGICAL HISTORY : Ureteroscoped to remove right kidney stone, Left knee and foot surgery, Left ear surgery ENCOUNTER: Initial ACUITY: 1 week PAIN SCORE: 0/10 LUMBAR PUNCTURE TIME: 1344 hours FLUORO TIME: 2.1 minutes ACCESS LEVEL: L3-4 OPENING PRESSURE: 17cm of water CLOSING PRESSURE: Not requested. FLUID: 22 cc of clear CSF was collected and sent to the laboratory for analysis. PROCEDURE : 1. Fluoroscopic guided lumbar puncture. 2. Recording of opening pressure. The risks, benefits and alternatives to the procedure were explained and verbal and written consent w as obtained. The site was prepped in sterile fashion. Full sterile technique was used, including ca p, mask, sterile gloves and gown and a large sterile sheet. Hand hygiene and 2% chlorhexidine and/or betadine/alcohol prep was utilized per protocol for cutaneous antisepsis. The skin and subcutaneous tissues were infiltrated with local anesthetic solution. With fluoroscopic guidance the lumbar thecal sac was punctured at the above level described above and the opening pressure was recorded. The above described fluid was removed without difficulty. The patient tolerated the procedure well and there were no complications. CONCLUSION: Uncomplicated fluoroscopically guided lumbar puncture with pressures as above. Karl Meneses MD on July 21, 2016 at 14:36 Board Certified Radiologist. This report was verified electronically.
[2016-07-21 15:06] LABS: GROSS BLOOD TUBE #1 TRACE (0); GROSS BLOOD TUBE #2 0 (0); GROSS BLOOD TUBE #3 0 (0); SUPERNATE COLOR TUBE #1 CLEAR (CLEAR); SUPERNATE COLOR TUBE #2 CLEAR (CLEAR); SUPERNATE COLOR TUBE #3 CLEAR (CLEAR); VOLUME TUBE # 1 4.5 ML; VOLUME TUBE # 2 4.8 ML; VOLUME TUBE # 3 4.8 ML
[2016-07-21 15:07] LABS: CSF LYMPHOCYTES 100 %; CSF NEUTROPHILS 0 %; GROSS BLOOD TUBE #4 0 (0); SUPERNATE COLOR TUBE #4 CLEAR (CLEAR); VOLUME TUBE # 4 7.5 ML; WBC TUBE #4 2 /MM3 (0-10)
[2016-07-21 16:00] VITALS: BP 146/81; PULSE 61; RESP 16; TEMP 95.9; O2SAT 94
--- NOTE | 2016-07-21 16:26 | HHI.PR ---
Review/Management Diagnosis IMAGING Diagnostic imaging: - MRI orbit with and without contrast revealed nonspecific mild appearing optic neuritis on the right side. No masses. Mild chronic cerebral white matter changes, also nonspecific. No acute intracranial abnormality detected. No restricted diffusion. No hemorrhage. No midline shift. DIAGNOSTIC IMPRESSION - Right optic neuritis. Possible etiologies include demyelination, vasculitis / vasculopathy. Other less likely pathologies include giant cell arteritis, vitamin B12 / vitamin deficiency, neuro sarcoid, Lyme disease. PLAN 1. Neuro checks q.4h. 2. Completed three doses of Methylprednisolone, last dose was yesterday 3. Continue blood pressure medication. 4. Continue statin. 5. Telemetry. 6. Cardiac echo result pending 7. Carotid ultrasound unremarkable 8. Cervical spine MRI with no evidence of enhancing lesions 9. Lumbar puncture, chemistry, cytology, ALANNA, lyme Ab, IgG index, NMO, oligoclonal bands, protein, . 10. DVT prophylaxis. 11. Patient is stable from neurology standpoint 12. May follow up with neurology as outpatient Diagnosis/Plan: Subjective Subjective Comments No acute events reported No visual symptoms or dizzy spells LP done today CSF pressure 17mm H2O Received three doses of IV Methylprednisone Active Medications Current Medications Medications (Trade) Dose Ordered Sig/Gary Route Start Time Stop Time Status Last Admin (NS Flush) 2 ml UNSCH PRN FLUSH 07/18/16 18:45 (NS Flush) 2 ml BID FLUSH 07/18/16 21:00 07/21/16 09:18 (Tylenol) 650 mg Q4H PRN PO 07/18/16 18:45 07/18/16 20:33 (Zofran Inj) 4 mg Q6H PRN IVP 07/18/16 18:45 (Milk Of Magnesia Liq) 30 ml Q12H PRN PO 07/18/16 18:45 (Narcan Inj) 0.4 mg UNSCH PRN IV 07/18/16 18:45 (Vasotec Inj) 1.25 mg Q6H PRN IV PUSH 07/18/16 19:15 07/19/16 06:07 (Norvasc) 5 mg DAILY PO 07/19/16 09:00 07/21/16 09:18 (Ecotrin Ec) 81 mg DAILY PO 07/19/16 09:00 07/19/16 08:54 (Lipitor) 40 mg HS PO 07/18/16 21:00 07/20/16 21:47 (Tylenol) 650 mg Q6H PRN PO 07/19/16 12:30 Allergies Allergies Coded Allergies Vicodin (Verified Allergy, Severe, Dizziness, 07/18/16) Exam I&O / VS 07/20/16 07/20/16 07/21/16 15:00 23:00 07:00 Intake Total 480 ml 480 ml 240 ml Balance 480 ml 480 ml 240 ml Intake Oral 480 ml 480 ml 240 ml # Voids 3 2 1 # Bowel Movements 0 1 0 Vital Signs Date Time Temp Pulse Resp B/P Pulse Ox O2 Delivery O2 Flow Rate FiO2 07/21/16 12:00 95.5 70 17 150/84 93 07/21/16 08:00 95.9 67 18 131/64 92 07/21/16 01:12 96.0 66 16 164/89 92 07/20/16 21:02 Room Air 07/20/16 20:00 96.3 58 16 157/76 94 Exam Comments GENERAL: Well-nourished, good historian, not in acute distress.Lays flat s/p LP HEENT: Atraumatic, normocephalic. Intact hearing. Complains of blurry vision on the right eye that has been improving since yesterday after he received first dose of Solu-Medrol. CARDIOVASCULAR: Regular rate and rhythm without murmurs. LUNGS: Clear to auscultation. No wheezes. EXTREMITIES: No lower extremity edema. No cyanosis. Moves all extremities equally. NEUROLOGIC: Awake, alert, oriented to time, person and place, intact memory, speech and speech content, right eye RAPD, no nystagmus, no diplopia, the rest of the cranial nerves are grossly intact.motor system 5/5 b/l UE&LE , normal tone , no abnormal movements.Cerebellar and sensory systems functions are normal. Reflexes 2+ throughout, plantars are b/l downgoing. Intact stance and gait, negative Rhomberg's sign, no ataxia. PSYCHIATRIC: Good mood and behavior. Normal judgment. Objective Radiology Results Last 72 hours Impressions Lumbar Puncture Fluoroscopy 07/21/16 0000 Signed Impressions: Service Date/Time: Thursday, July 21, 2016 13:30 - CONCLUSION: Uncomplicated fluoroscopically guided lumbar puncture with pressures as above. Karl Meneses MD Cervical Spine MRI 1/2/17 0000 Signed Impressions: Service Date/Time: Wednesday, July 20, 2016 10:50 - CONCLUSION: Degenerative changes are noted as described above. Brandon Grissom MD Carotid Artery Ultrasound 07/20/16 0000 Signed Impressions: Service Date/Time: Wednesday, July 20, 2016 09:11 - CONCLUSION: 1. No evidence for hemodynamically significant stenosis of either carotid artery. Brandon Grissom MD Micro and Labs Laboratory Tests Test 07/21/16 07/21/16 10:46 13:44 Prothrombin Time 11.2 Prothromb Time International 1.0 Ratio CSF Volume (Tube 1) 4.5 CSF Supernatant Color (tube 1) CLEAR CSF Gross Blood (Tube 1) TRACE CSF Volume (Tube 2) 4.8 CSF Supernatant Color (tube 2) CLEAR CSF Gross Blood (Tube 2) 0 CSF Volume (Tube 3) 4.8 CSF Supernatant Color (tube 3) CLEAR CSF Gross Blood (Tube 3) 0 CSF Volume (Tube 4) 7.5 CSF Supernatant Color (tube 4) CLEAR CSF Gross Blood (Tube 4) 0 CSF WBC (Tube 4) 2 CSF RBC (Tube 4) 2 CSF Neutrophils 0 CSF Lymphocytes 100 CSF Glucose 109 CSF Total Protein 49.9 Ryne John MD Jul 21, 2016 16:26
--- NOTE | 2016-07-21 19:00 | EC ---
Study Study Date:07/21/2016 STUDY CONCLUSIONS SUMMARY - Left ventricle: The cavity size was normal. Wall thickness was increased in a pattern of mild LVH. Systolic function was normal. The estimated ejection fraction was in the range of 55% to 60%. - Pulmonary arteries: PA peak pressure: 40mm Hg (S). If LV function is below 40, please consider prescribing an ACEI or ARB or document rationale for non-use. PROCEDURE DATA STUDY STATUS: Elective. Procedure: Transthoracic echocardiography. Image quality was good. Scanning was performed from the parasternal, apical, and subcostal acoustic windows. Study completion: The patient tolerated the procedure well. Transthoracic echocardiography. M-mode, complete 2D, complete spectral Doppler, and color Doppler. Patient status: Inpatient. CARDIAC ANATOMY LEFT VENTRICLE: The cavity size was normal. Wall thickness was increased in a pattern of mild LVH. Systolic function was normal. The estimated ejection fraction was in the range of 55% to 60%. AORTIC VALVE: Trileaflet. Doppler: There was no stenosis. No significant regurgitation. MITRAL VALVE: The valve appears to be grossly normal. Doppler: There was no evidence for stenosis. Trace regurgitation. Peak gradient: 4mm Hg (D). LEFT ATRIUM: The atrium was normal in size. PULMONIC VALVE: Not well visualized. Doppler: There was no evidence for stenosis. No significant regurgitation. TRICUSPID VALVE: The valve appears to be grossly normal. Doppler: There was no evidence for stenosis. Trace regurgitation. BASIC MEASUREMENTS ADULT Normal Left ventricle LV internal dimension, ED, chordal level, 44.1 mm 43-52 PLAX LV internal dimension, ES, chordal level, 33.4 mm 23-38 PLAX Fractional shortening, chordal level, PLAX *24 % >29 LV posterior wall thickness, ED 8.25 mm IVS/LVPW ratio, ED *1.35 <1.3 Ventricular septum Septal thickness, ED 11.1 mm Aortic valve Leaflet separation 25 mm 15-26 Left atrium Anterior-posterior dimension 36 mm Right ventricle RV internal dimension, ED, PLAX 22.7 mm 19-38 BASIC MEASUREMENTS ADULT Normal Aortic valve Leaflet separation 25 mm 15-26 Aorta Root diameter, ED *38 mm 20-37 DOPPLER MEASUREMENTS ADULT Normal Main pulmonary artery Pressure, S *40 mm Hg =30 Mitral valve Peak E-wave velocity 95.8 cm/s Peak A-wave velocity 47.9 cm/s Peak gradient, D 4 mm Hg Peak E/A ratio 2 Tricuspid valve Regurgitant peak velocity 273 cm/s Peak RV-RA gradient, S 30 mm Hg Maximal regurgitant velocity 273 cm/s Right ventricle RV pressure, S *40 mm Hg <30 LEGEND: Mean values are shown as u=mean value. Asterisk (*) hall values outside specified normal range. Prepared and signed by Mahesh Bishop [id number]
[2016-07-21 19:05] VITALS: BP 144/69; PULSE 60; RESP 17; TEMP 95.2; O2SAT 94
[2016-07-21] MEDS: ATORVASTATIN 40 MG TAB PO SCH (21:45)
[2016-07-22 00:15] VITALS: BP 133/65; PULSE 66; RESP 17; TEMP 96.4; O2SAT 94
[2016-07-22 04:03] VITALS: BP 152/83; PULSE 58; RESP 16; TEMP 96.6; O2SAT 94
[2016-07-22] MEDS: amLODIPine BESYLATE 5 MG TAB PO SCH (07:38)
[2016-07-22] MEDS: ASPIRIN EC 81 MG TABEC PO SCH (07:38)
[2016-07-22 08:00] VITALS: BP 155/78; PULSE 51; RESP 18; TEMP 95.8; O2SAT 95
[2016-07-22] MEDS: SODIUM CHLORIDE 0.9% FLUSH 5 ML FLUSH FLUSH SCH (09:00)
[2016-07-22 12:00] VITALS: BP 141/76; PULSE 68; RESP 18; TEMP 96.2; O2SAT 96
[2016-07-22] MEDS ORDERED: HYDR12.57 PO (13:52)
--- NOTE | 2016-07-22 13:55 | HHI.DCPOC ---
Discharge Care Plan Diagnosis: (1) Hypertension (2) Hyperlipidemia (3) Optic neuritis, right Goals to Promote Your Health Followup with neurologyfor optic neuritis. You were found to have left ventricular hypertrophy (LVH) on cardiac echo. This is usually due to hypertension, and reversible over time with better blood pressure control. Please see your primary care about LVH. * To prevent worsening of your condition and complications * To maintain your health at the optimal level Directions to Meet Your Goals Take your medications as prescribed Follow your dietary instruction Follow activity as directed Keep your appointments as scheduled Take your immunizations and boosters as scheduled If your symptoms worsen call your PCP, if no PCP go to Urgent Care Center or Emergency Room Smoking is Dangerous to Your Health. Avoid second hand smoke Call the 24-hour hour crisis hotline for domestic abuse at Chevy Nieto MD Jul 22, 2016 13:55
[2016-07-22 15:10] LABS: LYME IGG IMMUNOBLOT CSF None Detected bands (None Detected); LYME IGM IMMUNOBLOT CSF None Detected bands (None Detected)
[2016-07-23 11:57] LABS: ALBUMIN SERUM 3940 mg/dL (3200 - 4800); IGG CSF 3.4 mg/dL (<=8.1); IGG SERUM 850 mg/dL (767 - 1590); IGG/ALBUMIN CSF 0.11 (<=0.21); IGG/ALBUMIN SERUM 0.22 (<=0.40); SYNTHESIS RATE CSF 1.44 mg/24 h (<=12)
[2016-07-23 15:07] LABS: OLIGOCLONAL BANDING CSF 3 bands (()); OLIGOCLONAL BANDING INTERPRET 0 bands (<4); OLIGOCLONAL BANDING SERUM 3 bands (())
[2016-07-24 03:53] LABS: CSF ANGIOTENSIN CONV ENZYME LESS THAN 5 U/L (< OR = 15)
[2016-07-25 17:56] LABS: B. BURGDORFERI DNA PCR CSF NOT DETECTED (())
--- NOTE | 2016-07-27 12:04 | HHI.PR ---
Subjective Remarks Date of service 07/22/15. pt says he feels well. says vision intact. no headache. Objective Objective Remarks GENERAL: lying in bed. appears comfortable. aaox3. SKIN: Warm and dry. HEAD: Normocephalic. EYES: No scleral icterus. No injection or drainage. NECK: Supple, trachea midline. No JVD or lymphadenopathy. CARDIOVASCULAR: Regular rate and rhythm without murmurs, gallops, or rubs. RESPIRATORY: Breath sounds equal bilaterally. No accessory muscle use. GASTROINTESTINAL: Abdomen soft, non-tender, nondistended. MUSCULOSKELETAL: No cyanosis, or edema. BACK: Nontender without obvious deformity. No CVA tenderness. A/P Assessment and Plan Optic neuritis: Seen on orbital MRI. Vision and eye pain continued to improve. Consulted neurology, appreciate input. S/P steroids. - Echocardiogram negative for thrombus. - LP with slight elevated protein, however otherwise unremarkable. Hypertension: Chronic, stable. Continue Norvasc. Vasotec as needed. - Pressure still elevated on day of discharge. Will add hydrochlorothiazide 12.5 mg daily. Followup electrolytes in one week Hyperlipidemia: Chronic, stable. Continue statin. DVT prophylaxis: KENN Schaeffer. Discharge Planning discharge home. f/u neurology Chevy Nieto MD Jul 27, 2016 12:04
--- NOTE | 2016-07-27 12:05 | HHI.DS ---
Discharge Summary Admission Date Jul 18, 2016 at 18:32 Discharge Date: Jul 22, 2016 Admitting Diagnosis optic neuritis (1) Optic neuritis, right ICD Code: H46.9 (2) Hypertension ICD Code: I10 Procedures lumbar puncture Brief History - From Admission The patient is a 71-year-old male who presented to emergency department with a four-day history of right eye discomfort and decreased visual acuity. He states that he drove from [place] starting on Wednesday. By the end of the day Wednesday, he was having some pain in his right eye as well as headache. He took some Tylenol, which helped the pain. He has had increasing pain over the last 2-3 days and yesterday developed decreased vision in the right eye. The vision changes have remained the same today, they have not worsened or improved. No headache currently. No chest pain or dyspnea. Patient denies any other history of neurologic diagnoses, but did have dizziness for 1-2 days about 2 weeks ago. Imaging Last Impressions Lumbar Puncture Fluoroscopy 07/21/16 0000 Signed Impressions: Service Date/Time: Thursday, July 21, 2016 13:30 - CONCLUSION: Uncomplicated fluoroscopically guided lumbar puncture with pressures as above. aKrl Meneses MD Cervical Spine MRI 07/20/16 0000 Signed Impressions: Service Date/Time: Wednesday, July 20, 2016 10:50 - CONCLUSION: Degenerative changes are noted as described above. Brandon Grissom MD Carotid Artery Ultrasound 07/20/16 0000 Signed Impressions: Service Date/Time: Wednesday, July 20, 2016 09:11 - CONCLUSION: 1. No evidence for hemodynamically significant stenosis of either carotid artery. Brandon Grissom MD Orbit MRI 07/18/16 0000 Signed Impressions: Service Date/Time: Monday, July 18, 2016 17:01 - CONCLUSION: Nonspecific, mild appearing optic neuritis on the right. No mass. Mild, chronic cerebral white matter changes, also nonspecific. No acute intracranial abnormality demonstrated. Vargas Weinstein MD PE at Discharge GENERAL: Well-developed well-nourished. In no acute distress. Ambulating in the room. SKIN: Warm and dry. No lesions noted. HEENT: Normocephalic. Pupils equal and round. Mucous membranes pink and moist. CARDIOVASCULAR: Regular rate and rhythm. No murmur appreciated. RESPIRATORY: No accessory muscle use. Clear to auscultation. Breath sounds equal bilaterally. GASTROINTESTINAL: Abdomen soft, non-tender, nondistended. Bowel sounds x4. MUSCULOSKELETAL: No obvious deformities. No clubbing or cyanosis. No edema. NEUROLOGICAL: Awake and alert. No focal neurological deficits. Moves upper and lower extremities spontaneously. Normal speech. PSYCHIATRIC: Appropriate mood and affect; insight and judgment normal. Hospital Course 71-year-old male with past medical history of HTN, HLD, IBS, who presented with a four-day history of right eye discomfort and decreased visual acuity. Patient was treated with 3 days of IV Solu-Medrol as per neurology. MRI as above. Lumbar puncture was performed, and does show slight elevation in protein , albumin, but otherwise unremarkable. Visual disturbances, with floaters resolved. Patient will need to followup with neurology as outpatient. For problem based summary from most recent progress note, please see below. Optic neuritis: Seen on orbital MRI. Vision and eye pain continued to improve. Consulted neurology, appreciate input. S/P steroids. - Echocardiogram negative for thrombus. - LP with slight elevated protein, however otherwise unremarkable. Hypertension: Chronic, stable. Continue Norvasc. Vasotec as needed. - Pressure still elevated on day of discharge. Will add hydrochlorothiazide 12.5 mg daily. Followup electrolytes in one week Hyperlipidemia: Chronic, stable. Continue statin. DVT prophylaxis: KENN Schaeffer. Discharge Planning discharge home. f/u neurology Pt Condition on Discharge: Good Discharge Disposition: Discharge Home Discharge Time: <= 30 minutes Discharge Instructions DIET: Follow Instructions for: As Tolerated, No Restrictions Activities you can perform: Regular-No Restrictions Follow up Referrals: Neurology - 1 Week with Ryne John MD PCP Follow-up - 1 Week New Orders: BASIC METABOLIC PROF - 1 Week New Medications: Hydrochlorothiazide (Hydrochlorothiazide) 12.5 Mg Cap 12.5 MG PO DAILY heart #30 Ref 0 CAP Continued Medications: Amlodipine (Norvasc) 5 Mg Tab 5 MG PO DAILY Blood Pressure Management #30 Ref 0 TAB Aspirin (Aspirin) 81 Mg Tabdr 81 MG PO DAILY Blood Clot Prevention TAB Atorvastatin (Lipitor) 40 Mg Tab 40 MG PO HS Cholesterol Management #30 Ref 0 TAB Chevy Nieto MD Jul 27, 2016 12:05
== END 2016-07-22 17:17 | disposition home or self-care (01) | DRG 123 ==
LOC: PHED 14:08 → PHEDA 18:32 → PHEDH 21:31 → HOCB 07-19 12:52 → N06B 07-19 18:29
PROVIDERS: ADMIT Internal Medicine; ATTEND Internal Medicine
PROC: 009U3ZX Drainage of Spinal Canal, Percutaneous Approach, Diagnostic (ICD-10-PCS; principal; 2016-07-21)
DX: H46.9 Unspecified optic neuritis (principal); I10 Essential (primary) hypertension; E78.5 Hyperlipidemia, unspecified; Z86.711 Personal history of pulmonary embolism; K58.9 Irritable bowel syndrome, unspecified; Z79.82 Long term (current) use of aspirin
CPT/HCPCS: 62270; 70543; 72156; 77003; 80048; 82040; 82042; 82164; 82784; 82945; 83873; 83916; 84157; 85025; 85610; 85652; 86038; 86592; 86618; 87801; 89051; 93005; 93306; 93880; A9579; J2930

== ENCOUNTER → 2016-07-29 | Outpatient (CLI) | payer MEDICARE ==
[~2016-07-29] MED LIST changes: +AMLO5 PO; +ASPI1TAB69 PO; -ASPI81TA82 PO; -CLON.1 PO; +GADODIAMIDE PF 287 MG/ML 20 ML VIAL (for RAD MRI) IV ONE; +HYDR12.57 PO; -LIPI10TA PO; +LIPI40TA PO; -MULTCAP14 PO
--- NOTE | 2016-07-29 16:38 | RADRPT ---
EXAM DATE/TIME: 07/29/2016 15:16 [facility] COMPARISON: MRI ORBITS W & W/O CONTRAST, July 18, 2016, 17:01. INDICATIONS : Recurrent right eye pain with blurriness. CONTRAST: 20 cc Omniscan (gadodiamide) IV MEDICAL HISTORY : Hypertension. SURGICAL HISTORY : Eardrum, eyelid, knee, heal ENCOUNTER: Subsequent ACUITY: 2 day PAIN SCORE: 3/10 LOCATION: Right eye TECHNIQUE: Multiplanar, multisequence MRI of the brain was performed both prior to and following the administration of paramagnetic contrast. FINDINGS: There are moderate periventricular white matter changes evident. Ventricular size is a ppropriate. There is no restricted diffusion evident. Midline structures are intact. There is no abnormal contrast enhancement. Thin sections were obtained through the orbits without and with contrast. CONCLUSION: There is an excellent look at the orbit and optic chiasms. I do not see evidence for a demyelinating etiology for the optic neuritis. However, periventricular white matter plaques are oriented along the subcortical u-fibres and are concerning for a demyelinating process. The previous ly described findings have resolved although the right optic nerve sheath appears less prominent on t he right than the left suggesting the nerve may be edematous however I cannot confirm that on any [facility] er pulse sequences. Dwain Meneses MD FACR on July 29, 2016 at 16:01 Board Certified Radiologist. This report was verified electronically.
== END ==
LOC: HRAD 14:46
PROVIDERS: ATTEND Psychiatry & Neurology Neurology
DX: H53.8 Other visual disturbances (principal); H57.11 Ocular pain, right eye
CPT/HCPCS: 70553; A9579